=== PATIENT | female | born 1990 | race Two or more races ===

== ENCOUNTER 2017-02-13 13:31 | Emergency (ER) | payer OTHER ==
[2017-02-13 13:37] VITALS: TEMP 98.2; BMI 38.7
--- NOTE | 2017-02-13 14:21 | PDOC ---
History of Present Illness - General Chief Complaint: Pain, Acute Stated Complaint: PAIN Time Seen by Provider: 02/13/17 13:45 History Source: Patient - History of Present Illness Timing/Duration: reports: constant Quality: reports: severe Abdominal Pain Onset Location: reports: RLQ Pain Radiation: reports: no radiation Past History - Past Medical History Allergies/Adverse Reactions: Allergies Allergy/AdvReac Type Severity Reaction Status Date / Time No Known Allergies Allergy Verified 02/13/17 13:34 Home Medications: Ambulatory Orders Ciprofloxacin HCl [Cipro] 500 mg PO BID #14 tablet 02/13/17 Ibuprofen [Motrin -] 600 mg PO TID #21 tablet 02/13/17 Asthma: No Cancer: No Cardiac Disorders: No Diabetes: No HTN: No Seizures: No Thyroid Disease: No Other medical history: NONE - Psycho/Social/Smoking Cessation Hx Anxiety: No Suicidal Ideation: No Smoking History: Never smoked Have you smoked in the past 12 months: No Information on smoking cessation initiated: No Hx Alcohol Use: No Drug/Substance Use Hx: No Substance Use Type: None Hx Substance Use Treatment: No Review of Systems - Review of Systems Constitutional: No: Chills, Fever ABD/GI: Yes: Diarrhea, Abdominal cramping. No: Nausea, Vomiting : Yes: Dysuria. No: Flank Pain, Hematuria *Physical Exam - Vital Signs Last Vital Signs Temp Pulse Resp BP Pulse Ox 98.2 F 79 18 114/71 100 02/13/17 13:35 02/13/17 13:35 02/13/17 13:35 02/13/17 13:35 02/13/17 13:35 - Physical Exam General Appearance: Yes: Appropriately Dressed, Mild Distress HEENT: positive: Normal Voice Neck: positive: Supple Respiratory/Chest: negative: Respiratory Distress Female Pelvic Exam: positive: normal external exam, cervical os closed, normal adnexa, CMT, discharge (small amount of light yellow discharge). negative: lesions, adnexal tenderness, vaginal bleeding Gastrointestinal/Abdominal: positive: Tender (poorly localized ttp to R mid and lower quadrant, no CVAT), Soft Musculoskeletal: negative: CVA Tenderness Integumentary: positive: Dry, Warm Neurologic: positive: Fully Oriented, Alert, Normal Mood/Affect ED Treatment Course - LABORATORY CBC & Chemistry Diagram: 02/13/17 15:00 02/13/17 15:00 Medical Decision Making - Medical Decision Making 02/13/17 14:18 26-year-old female, no significant history here with abdominal pain. Patient reports R flank pain this a.m., cramping in nature and constant, not relieved with [id number] medication. Had 1 episode of dysuria this a.m. prior to onset of pain. No hematuria, nausea, vomiting, fever or chills. Does report proximally 3 episodes of loose, non-bloody stools today. No abnormal vag discharge or bleed. No h/o stone See exam R flank pain w/ dysuria Pyelo vs appy vs less likely stone though considered, unlikely biliary source, unlikely PID as pelvic exam wnl -pain control -labs/ua -?CT 02/13/17 15:14 02/13/17 15:22 02/13/17 15:42 Shortly after receiving IV ceftriaxone, patient developed itching and swelling to face and hands. No tongue swelling, stridor or difficulty breathing. Of note , patient also received IV Toradol but states she has taken Motrin many times in the past with no adverse reaction. Pt denies any known drug allergies prior to this and no h/o anaphylaxis. Will update patient's medical records reflecting new drug allergy. Benadryl and Solu-Medrol now in progress. After meds for allergic reaction, will observe in ED and upon improvement/resolution of symptoms, will dc w/ Cipro for 7 days. Of note, no prior positive urine culture on records here 02/13/17 17:39 02/13/17 17:56 Pt reports feeling significantly better. Facial/hand swelling and itching has resolved. Will dc w/ cipro. Reasons to return d/w pt 02/13/17 17:57 *DC/Admit/Observation/Transfer Diagnosis at time of Disposition: Pyelonephritis - Discharge Dispostion Disposition: HOME Condition at time of disposition: Improved - Prescriptions Prescriptions: Ciprofloxacin HCl [Cipro] 500 mg PO BID #14 tablet Ibuprofen [Motrin -] 600 mg PO TID #21 tablet - Patient Instructions Printed Discharge Instructions: DI for Kidney Infection Additional Instructions: Take medications as prescribed. If symptoms persist, return to ER immediately, otherwise follow-up with your primary care physician - Post Discharge Activity Work/School Note: Back to Work
[2017-02-13 15:01] LABS: URINE APPEARANCE CLEAR; URINE BILIRUBIN NEGATIVE (NEGATIVE); URINE BLOOD 3+ (NEGATIVE); URINE COLOR AMBER; URINE GLUCOSE (UA) NEGATIVE (NEGATIVE); URINE KETONE NEGATIVE (NEGATIVE); URINE NITRITE POSITIVE (NEGATIVE); URINE PROTEIN NEGATIVE (NEGATIVE)
[2017-02-13] MEDS ORDERED: KETOROLAC TROMETHAMINE 30 MG/1 ML VIAL IVPUSH ONE (15:16)
[2017-02-13] MEDS ORDERED: SODIUM CHLORIDE 1,000 ML IV STA (15:18)
[2017-02-13 15:21] LABS: URINE LEUK ESTERASE 2+ (NEGATIVE)
[2017-02-13 15:22] LABS: BASOPHIL 0.7 % (0-2.0); EOSINOPHIL 0.3 % (0-4.5); MCH 29.9 pg (25.7-33.7); MCHC 33.4 g/dl (32.0-36.0); MEAN CELL VOLUME 89.4 fl (80-96); NEUTROPHILS 74.3 % (42.8-82.8); PLATELET COUNT 258 K/MM3 (134-434); RDW 13.2 % (11.6-15.6); WHITE BLOOD COUNT 10.3 K/mm3 (4.0-10.0)
[2017-02-13] MEDS ORDERED: KETOROLAC TROMETHAMINE 30 MG/1 ML VIAL ONE (15:22)
[2017-02-13] MEDS ORDERED: CEFTRIAXONE 1 GM in DEXTROSE 5%-WATER - 50 ML IVPB ONE (15:22)
[2017-02-13] MEDS ORDERED: CEFTRIAXONE 50 ML ONE (15:23)
[2017-02-13 15:30] LABS: ALBUMIN 4.2 g/dl (3.4-5.0); ALK PHOS 97 U/L (45-117); ANION GAP 8 (8-16); BILIRUBIN,TOTAL 0.5 mg/dL (0.2-1.0); CALCIUM 9.2 mg/dL (8.5-10.1); CO2 26 mmol/L (21-32); CREATININE 0.8 mg/dL (0.55-1.02); GLUCOSE,RANDOM 100 mg/dL (74-106); SGOT/AST 25 U/L (15-37); SGPT/ALT 42 U/L (12-78); TOT PROT 7.5 g/dl (6.4-8.2)
[2017-02-13] MEDS ORDERED: methylPREDNISolone NA SUCC 125 MG/2 ML VIAL ONE (15:42)
[2017-02-13] MEDS ORDERED: LEVOFLOXACIN 250 MG TABLET (FP) PO ONE (15:48)
[2017-02-13] MEDS ORDERED: methylPREDNISolone NA SUCC 125 MG/2 ML VIAL IVPB ONE (15:52)
[2017-02-13 15:57] LABS: URINE BACTERIA RARE /hpf (NONE SEEN); URINE RBC 1 /hpf (0-3); URINE WBC 7 /hpf (3-5)
--- NOTE | 2017-02-13 17:44 | PDOC ---
*Physical Exam - Vital Signs Last Vital Signs Temp Pulse Resp BP Pulse Ox 98.2 F 77 18 111/87 98 02/13/17 13:35 02/13/17 17:03 02/13/17 17:03 02/13/17 17:03 02/13/17 17:03 ED Treatment Course - LABORATORY CBC & Chemistry Diagram: 02/13/17 15:00 02/13/17 15:00 - ADDITIONAL ORDERS Additional order review: Laboratory Results 02/13/17 02/13/17 15:00 14:20 Sodium 138 Potassium 4.4 Chloride 104 Carbon Dioxide 26 D Anion Gap 8 BUN 10 Creatinine 0.8 D Creat Clearance w eGFR > 60 Random Glucose 100 Calcium 9.2 Total Bilirubin 0.5 AST 25 ALT 42 D Alkaline Phosphatase 97 Total Protein 7.5 Albumin 4.2 Urine Color Leora Urine Appearance Clear Urine pH 6.0 Urine Protein Negative Urine Glucose (UA) Negative Urine Ketones Negative Urine Blood 3+ H Urine Nitrite Positive Urine Bilirubin Negative Urine Urobilinogen 2.0 H Ur Leukocyte Esterase 2+ H Urine RBC 1 Urine WBC 7 Ur Epithelial Cells Rare Urine Bacteria Rare Urine HCG, Qual Negative 02/13/17 15:00 RBC 4.68 D MCV 89.4 MCHC 33.4 RDW 13.2 D MPV 10.0 Neutrophils % 74.3 Lymphocytes % 19.1 Monocytes % 5.6 Eosinophils % 0.3 Basophils % 0.7 - Medications Given in the ED: ED Medications Discontinued Medications Generic Name Dose Route Start Last Admin Trade Name Freq PRN Reason Stop Dose Admin Diphenhydramine HCl 50 mg 02/13/17 15:51 02/13/17 15:45 Benadryl Injection - IVPUSH 02/13/17 15:52 50 mg ONCE ONE Administration Sodium Chloride 1,000 mls @ 1,000 mls/hr 02/13/17 15:18 02/13/17 15:32 Normal Saline - IV 02/13/17 16:17 1,000 mls/hr ASDIR STA Administration Ceftriaxone Sodium 1 gm/ 50 mls @ 100 mls/hr 02/13/17 15:22 02/13/17 15:33 Dextrose IVPB 02/13/17 15:51 100 mls/hr ONCE ONE Administration Ketorolac Tromethamine 30 mg 02/13/17 15:16 02/13/17 15:33 Toradol Injection - IVPUSH 02/13/17 15:17 30 mg ONCE ONE Administration Methylprednisolone Sodium Succinate 125 mg 02/13/17 15:52 02/13/17 15:47 Solu-Medrol - IVPB 02/13/17 15:53 125 mg ONCE ONE Administration Medical Decision Making - Medical Decision Making 02/13/17 17:41 Agree with PA's evaluation, assessment, and plan. 26 F with 1 day of dysuria and R flank pain. - UA suspicious for infection, so pt given 1 dose ceftriaxone in ER. - While getting ceftriaxone, pt developed hand swelling, and itching. Was given benadryl and steroids with significant improvement in symptoms - At 5:40PM pt was re-evaluated and reports resolution of swelling and itchiness. Denies SOB, denies tongue swelling, states she feels back to baseline. - Will continue to monitor, then DC home with cipro *DC/Admit/Observation/Transfer Diagnosis at time of Disposition: Pyelonephritis - Discharge Dispostion Condition at time of disposition: Improved - Prescriptions Prescriptions: Ciprofloxacin HCl [Cipro] 500 mg PO BID #14 tablet Ibuprofen [Motrin -] 600 mg PO TID #21 tablet - Referrals - Patient Instructions Printed Discharge Instructions: DI for Kidney Infection Additional Instructions: Take medications as prescribed. If symptoms persist, return to ER immediately, otherwise follow-up with your primary care physician - Post Discharge Activity
[2017-02-13 18:08] VITALS: BP 111/62; PULSE 69
== END 2017-02-13 18:07 | disposition home or self-care (01) ==
LOC: JER 13:31
PROC: 3E033NZ Introduction of Analgesics, Hypnotics, Sedatives into Peripheral Vein, Percutaneous Approach (ICD-10-PCS; principal; 2017-02-13)
PROC: 3E0333Z Introduction of Anti-inflammatory into Peripheral Vein, Percutaneous Approach (ICD-10-PCS; 2017-02-13)
PROC: 3E0337Z Introduction of Electrolytic and Water Balance Substance into Peripheral Vein, Percutaneous Approach (ICD-10-PCS; 2017-02-13)
DX: N10 Acute pyelonephritis (principal); L29.9 Pruritus, unspecified; T36.1X5A Adverse effect of cephalosporins and other beta-lactam antibiotics, initial encounter; Y92.238 Other place in hospital as the place of occurrence of the external cause
CPT/HCPCS: 36415; 80053; 81003; 81015; 84703; 85025; 87086; 87186; 87491; 87591; 99282-25

== ENCOUNTER 2019-12-25 09:26 | Emergency (ER) | payer OTHER ==
[2019-12-25 09:34] VITALS: TEMP 99.6; BMI 35.7
--- NOTE | 2019-12-25 10:32 | PDOC ---
History of Present Illness - General Chief Complaint: Headache Stated Complaint: UTI / PAIN Time Seen by Provider: 12/25/19 10:20 History Source: Patient Exam Limitations: No Limitations - History of Present Illness Initial Comments: Shagufta is a 29 yo obese F w a hx of UTI 1 week ago taking ciprofloxacin presents to the [facility] er with 3 days of a slowly and gradually worsening bi- frontal headache which is now preventing her from sleeping. This headache has also been making her feel nauseous and she has not been tolerating PO well over the past 3 days. Patient states she gets headaches often and this one feels similar to her prior ones but its been persistent. She states usually her headaches are on one side of her head but today it wraps around her head like a tight band is compressing her head. Headache did not come on suddenly. Headache is not the worst headache of her life. She states for her UTI which was diagnosed at [facility] she was given two meds that she cannot remember. One was a 3 day course which she finished. The other is in a bottle that is 500 mg that she is supposed to take for 10 days. Denies photophobia, phonophobia, blurry vision, neck pain, chest pain, SOB, difficulty breathing, fevers, chills, numbness, tingling, or weakness. LMP: 2 weeks ago PCP: None Allergies: Ceftriaxone Social Hx: Denies smoking, drinking, or other substance abuse PSH: None reported Past History - Medical History Allergies/Adverse Reactions: Allergies Allergy/AdvReac Type Severity Reaction Status Date / Time ceftriaxone sodium Allergy Verified 12/25/19 09:34 [From Rocephin] Home Medications: Ambulatory Orders Ciprofloxacin HCl [Cipro] 500 mg PO BID #14 tablet 02/13/17 Ibuprofen [Motrin -] 600 mg PO TID #21 tablet 02/13/17 Asthma: No Cancer: No Cardiac Disorders: No COPD: No Diabetes: No HTN: No Seizures: No Thyroid Disease: No - Psycho-Social/Smoking History Smoking History: Never smoked Have you smoked in the past 12 months: No - Substance Abuse Hx (Audit-C & DAST Scrn) How often the patient has a drink containing alcohol: Monthly or less Score: In Men: 4 or > Positive; In Women: 3 or > Positive: 1 Screen Result (Pos requires Nsg. Audit-10AR): Negative Review of Systems - Review of Systems Able to Perform ROS?: Yes Comments:: CONSTITUTIONAL: Absent: fever, no chills, no fatigue EYES: Absent: visual changes ENT: Absent: ear pain, no sore throat CARDIOVASCULAR: Absent: chest pain, no palpitations RESPIRATORY: Absent: cough, no SOB GI: Present: Nausea Absent: abdominal pain, no vomiting, no constipation, no diarrhea GENITOURINARY: Present: Dysuria Absent: no frequency, no hematuria MUSKULOSKELETAL: Absent: back pain, no arthralgia, no myalgia SKIN: Absent: rash NEURO: Present: headache *Physical Exam - Vital Signs Last Vital Signs Temp Pulse Resp BP Pulse Ox 99.6 F 101 H 18 117/76 98 12/25/19 09:31 12/25/19 09:31 12/25/19 09:31 12/25/19 09:31 12/25/19 09:31 - Physical Exam GENERAL: Appears uncomfortable. Well-nourished. Overweight. HEENT: Normocephalic, atraumatic. PERRLA, EOMI. No conjunctival pallor. Sclera are non- icteric. Moist mucous membranes. Oropharynx is clear. CARDIOVASCULAR: Normal S1, S2. Regular rate and rhythm. PULMONARY: No evidence of respiratory distress. Lungs clear to auscultation bilaterally. No wheezing, rales or rhonchi. ABDOMEN: Soft, non-distended, non-tender. EXTREMITIES: Normal ROM in all four extremities. No gross deformities. SKIN: Warm, dry. No rash NEUROLOGICAL: Alert, awake, appropriate. Cranial nerves 2-12 intact. No deficits to light touch in face, upper extremities and lower extremities. No motor deficits in the in face, upper extremities and lower extremities. Normal speech. Gait is normal without ataxia. PSYCHIATRIC: Cooperative. Good eye contact. Appropriate mood and affect. Medical Decision Making - Medical Decision Making Shagufta is a 29 yo obese F w a hx of UTI 1 week ago taking ciprofloxacin presents to the [facility] er with 3 days of a slowly and gradually worsening bi- frontal headache which is now preventing her from sleeping. This headache has also been making her feel nauseous and she has not been tolerating PO well over the past 3 days. Patient states she gets headaches often and this one feels similar to her prior ones but its been persistent. She states usually her headaches are on one side of her head but today it wraps around her head like a tight band is compressing her head. Headache did not come on suddenly. Headache is not the worst headache of her life. She states for her UTI which was diagnosed at [facility] she was given two meds that she cannot remember. One was a 3 day course which she finished. The other is in a bottle that is 500 mg that she is supposed to take for 10 days. Denies photophobia, phonophobia, blurry vision, neck pain, chest pain, SOB, difficulty breathing, fevers, chills, numbness, tingling, or weakness. LMP: 2 weeks ago Vital Signs Temp Pulse Resp BP Pulse Ox 99.6 F 101 H 18 117/76 98 12/25/19 09:31 12/25/19 09:31 12/25/19 09:31 12/25/19 09:31 12/25/19 09:31 DDx IBNLT: Headache - Migraine vs tension vs cluster, IICH/pseudotumor cerebri Plan: Supportive care, analgesics, re-assess Re-assessment: Patient feeling much better after IV hydration and migrane cocktail requesting to be discharged from the hospital HR: 84 Disposition: Home with PCP and neuro fu I discussed the physical exam findings, ancillary test results and final diagnoses with the patient. I answered all of the patient's questions. The patient was satisfied with the care received and felt comfortable with the discharge plan and treatment plan. The patient will call their primary care physician within 24 hours to arrange follow-up and will return to the Emergency Department with any new, persistent or worsening symptoms. Please note, this clinical encounter is taking place during a federal and state health care emergency attributable to the novel Addison Virus pandemic. The [employer] of the Department of Health and Human Services has declared, pursuant to the Public Health Service Act 319F-3 (42 U.S.C. 247d-6d), that a covered persons activities related to medical countermeasures against COVID-19 will be immune from liability under Federal and State law. Discharge - Discharge Information Problems reviewed: Yes Clinical Impression/Diagnosis: Headache Qualifiers: Headache type: tension-type Headache chronicity pattern: unspecified pattern Intractability: not intractable Qualified Code(s): G44.209 - Tension-type headache, unspecified, not intractable Condition: Improved Disposition: HOME - Admission No - Follow up/Referral Referrals: Gosia Patel MD [Staff Physician] - [facility] [place] [facility] [place] [Provider Group] - Patient Discharge Instructions Patient Printed Discharge Instructions: DI for Headache Additional Instructions: You came into the ER with a headache which got better after the medications we gave you. You must return to the Emergency Department with any new complaints, if your symptoms persist and do not improve or if you develop any other new or worsening concerns. As discussed, please call to follow up with the new Primary Care physician we are referring you to in 1-2 days to discuss what happened to you in the emergency room, and make sure you are being looked after and taken care of. Your emergency room visit is not complete without this follow up appointment. Thank you for coming to the [place] ER. We hope you feel better soon! Print Language: URDU - Post Discharge Activity Vital Signs - Vital Signs Vital signs refused: No Pulse Rate: 84
[2019-12-25] MEDS ORDERED: ACETAMINOPHEN 1000 MG/100 ML VIAL (NON FORMULARY) IVPB ONE (10:33)
[2019-12-25] MEDS ORDERED: SODIUM CHLORIDE 0.9% 500 ML INFUS.BAG IV ONE (10:33)
[2019-12-25] MEDS ORDERED: METOCLOPRAMIDE HCL INJECTION 10 MG/2 ML VIAL IVPUSH ONE (10:33)
[2019-12-25] MEDS ORDERED: ACETAMINOPHEN INJECTION 100 ML IVPB ONE (10:47)
[2019-12-25] MEDS ORDERED: METOCLOPRAMIDE HCL INJECTION 10 MG/2 ML VIAL ONE (10:47)
--- NOTE | 2019-12-25 12:21 | PDOC ---
Documentation entered by Leydi Olivares SCRIBE, acting as scribe for Kaitlin Doll MD. Kaitlin Doll MD: This documentation has been prepared by the Elise de leon Sydney, SCRIBE, under my direction and personally reviewed by me in its entirety. I confirm that the documentation accurately reflects all work, treatment, procedures, and medical decision making performed by me. Attending Attestation - Resident Resident Name: Carlos A Laguerre - ED Attending Attestation I have performed the following: I have examined & evaluated the patient, The case was reviewed & discussed with the resident, I agree w/resident's findings & plan, Exceptions are as noted - HPI HPI: 12/25/19 11:17 Patient is a 29 year old female with a significant past medical history of obesity, UTI (one week ago, on ciprofloxacin) who presents to the ED with three days of a progressively worsening headache. Patient reports associated nausea and discomfort upon eating and drinking for the duration of her headache. She notes frequent previous headaches which are localized to one side of her head, but today presents with persistent symptoms in her entire head. Denies preceding head trauma. No changes in vision. No dizziness or lightheadedness. Denies neck pain, chest pain, SOB, difficulty breathing, fevers, chills, numbness, tingling, or weakness. Denies any symptoms. Allergies: Ceftriaxone - Physicial Exam PE: 12/25/19 12:17 General: well appearing, NAD HEENT: NCAT, EOMI, PERRL, no nystagmus Extremities: warm and well perfused, FROM Neuro: Aox3, speech fluent, face symmetric, gait steady, no focal deficits - Medical Decision Making 12/25/19 12:18 29 yo F with gradual onset headache, neurologically intact, no signs concerning for ICH, likely tension headache vs. dehydration as it has been warm outside and patient reports decreased PO intake at home. Plan: -tylenol -reglan -IVF -anticipate d/c home after patient receives medications if headache improves, return precautions given, recommend PMD f/u and encourage supportive care a lew as well as oral hydration This clinical encounter is taking place during a federal and state health care emergency attributable to the novel Addison Virus pandemic. The [place] of the Department of Health and Human Services has declared, pursuant to the Public Health Service Act 319F-3 (42 U.S.C. 247d-6d), that a covered persons activities related to medical countermeasures against COVID-19 will be immune from liability under Federal and State law. Discharge - Discharge Information Problems reviewed: Yes Clinical Impression/Diagnosis: Headache Qualifiers: Headache type: tension-type Headache chronicity pattern: unspecified pattern Intractability: not intractable Qualified Code(s): G44.209 - Tension-type headache, unspecified, not intractable - Follow up/Referral - Patient Discharge Instructions - Post Discharge Activity
[2019-12-25 12:37] VITALS: BP 123/76
[2019-12-25 16:34] VITALS: PULSE 84
== END 2019-12-25 12:38 | disposition home or self-care (01) ==
LOC: JER 09:26
PROC: 3E033GC Introduction of Other Therapeutic Substance into Peripheral Vein, Percutaneous Approach (ICD-10-PCS; principal; 2019-12-25)
DX: G44.209 Tension-type headache, unspecified, not intractable (principal)
CPT/HCPCS: 99284-25; J0131